=== PATIENT | female | born 1950 | race Caucasian/White ===

== ENCOUNTER 2017-04-02 12:28 | Emergency (ER) | payer BC ==
[2017-04-02 13:11] LABS: Bilirubin Negative (Negative); Blood, Urine Negative (Negative); Glucose, Urine (Dipstick) Negative (Negative); Ketone, Urine Negative (Negative); Nitrite Negative (Negative); Protein, Urine (Dipstick) Negative (Neg-Trace); Urobilinogen 0.2 mg/dL (0.2-1.0)
[2017-04-02 13:22] LABS: #Eosinphils 0.2 thou/uL (0.0-0.7); #Lymphocytes 3.6 thou/uL (1.20-3.40); #Monocytes 0.8 thou/uL (0.11-0.59); %Basophils 0.4 % (0.0-1.0); %Eosinophils 1.8 % (0.0-10.0); %Lymphocytes 37.4 % (21.0-51.0); %Monocytes 8.3 % (0.0-10.0); Hematocrit 42.9 % (36.0-47.0); Red Blood Cell (RBC) Count 4.49 mill/uL (4.20-5.40); White Blood Cell (WBC) Count 9.7 thou/uL (4.8-10.8)
--- NOTE | 2017-04-02 13:32 | CT ---
CT ABDOMEN AND PELVIS NONCONTRAST: HISTORY: Right flank pain. FINDINGS: Each renal collecting system and ureter are decompressed without stone evident. The urinary bladder is also decompressed. Phleboliths outside of the course of each ureter are apparent within the retro peritoneum. Lack of contrast limits evaluation for other abnormalities. There is calcification of the arterial s tructures. The gallbladder is surgically absent. A small, lobulated, nonspecific, low density lesio n is present within the right liver lobe, near the gallbladder fossa. Minimal amount of transverse c olon protrudes through an anterior abdominal wall defect, just above the level of the umbilicus. The re are degenerative changes of the lumbar spine. The liver is diffusely hypodense. IMPRESSION: 1. No CT evidence of urinary tract obstruction or calcification. 2. Hepatosteatosis, status post cholecystectomy. 3. Atherosclerosis. POS: [facility]
[2017-04-02 13:43] LABS: ALT (SGPT) 46 U/L (8-55); AST (SGOT) 48 U/L (5-34); Alkaline Phosphatase 115 U/L (40-150); Anion Gap 14 mmol/L (10-20); BUN (Urea Nitrogen) 11 mg/dL (9.8-20.1); Bilirubin, Total 0.4 mg/dL (0.2-1.2); Calc. Creatinine Clearance 0 mL/min (70-130); Calcium 10.6 mg/dL (7.8-10.44); Carbon Dioxide 26 mmol/L (23-31); Chloride 101 mmol/L (98-107); Estimated GFR-MDRD 80; Globulin 3.6 g/dL (2.4-3.5)
[2017-04-02] MEDS ORDERED: Ketorolac Tromethamine 30 MG/ML VIAL ONE (15:20)
[2017-04-02] MEDS ORDERED: Diazepam 5 MG TAB ONE (16:23)
== END 2017-04-02 16:36 | disposition home or self-care (01) ==
LOC: ERS 12:28
DX: R10.9 Unspecified abdominal pain (principal); I10 Essential (primary) hypertension; E03.9 Hypothyroidism, unspecified; F17.210 Nicotine dependence, cigarettes, uncomplicated; Z79.899 Other long term (current) drug therapy
CPT/HCPCS: 36415; 74176; 80053; 81003; 85025; 96361; 96374; J1885

== ENCOUNTER 2017-10-17 10:16 | Outpatient (CLI) | payer BC ==
--- NOTE | 2017-10-17 11:20 | RAD ---
CHEST TWO VIEWS: HISTORY: Cough and COPD. COMPARISON: 03/23/2016 FINDINGS: Two views of the chest show normal sized cardiomediastinal silhouette. There is no evidence of consol idation, mass, or pleural effusion. Degenerative changes are seen in the spine. Surgical clips are s een in the upper abdomen. IMPRESSION: No evidence of acute cardiopulmonary disease. POS: [facility]
== END 2017-10-17 10:17 | disposition home or self-care (01) ==
LOC: RAD-FRANK 10:16
PROVIDERS: ATTEND Nurse Practitioner Family
DX: J44.1 Chronic obstructive pulmonary disease with (acute) exacerbation (principal); F17.200 Nicotine dependence, unspecified, uncomplicated; J01.80 Other acute sinusitis
CPT/HCPCS: 71046

== ENCOUNTER 2018-06-23 08:50 | Outpatient (CLI) | payer BC ==
--- NOTE | 2018-06-23 11:41 | CT ---
CT OF THE THORAX WITH IV CONTRAST: INDICATION: History of acute exacerbation of COPD and bronchitis. CONTRAST: 70 cc of Isovue 370. COMPARISON: CTA of the thorax dated 11/22/2011 and a complete abdomen ultrasound dated 06/13/2016. FINDINGS: There are areas of subsegmental volume loss within the lingula and left lower lobe. There is mild sc attered centrilobular emphysema. No suspicious pulmonary nodule is demonstrated. No confluent airsp daniella opacity is present. There are a few shotty nonpathologically enlarged lymph nodes within the mediastinum in the pretrache al, prevascular, or AP window regions. The largest node is seen within the AP window measuring 8 mm. There are prominent vascular calcifications involving the thoracic aorta. There are surgical clips within the region of the gastroesophageal junction. There is a cirrhotic mo rphology of the liver. There is an enhancing lesion involving the right hepatic lobe measuring 1.8 c m. The gallbladder is surgically absent. The adrenal glands are normal-appearing. There is scattered degenerative and osteoarthritic change. No definite acute osseous abnormality is evident. IMPRESSION: 1. Areas of subsegmental volume loss in the lingula and left lower lobe can be related to peripheral airways disease such as bronchiolitis. There is mild centrilobular emphysema. No suspicious pulmon jonathan nodule is evident. 2. Cirrhosis with an arterial enhancing lesion right hepatic dome. This requires further evaluation as a hypervascular hepatic malignancy is not excluded. A CT of the abdomen utilizing a hemangioma p rotocol is recommended. Additional smaller hypodensity is seen within segment 6 of right hepatic lob e that requires further characterization. CODE T POS: [facility]
[2018-06-23] MEDS ORDERED: ISOVUE-370 76%-LOCM 1 ML ONE (16:27)
== END 2018-06-23 08:51 | disposition home or self-care (01) ==
LOC: BICCT 08:50
PROVIDERS: ATTEND Nurse Practitioner Family
DX: F17.200 Nicotine dependence, unspecified, uncomplicated (principal); J43.9 Emphysema, unspecified; K74.60 Unspecified cirrhosis of liver; R93.2 Abnormal findings on diagnostic imaging of liver and biliary tract
CPT/HCPCS: 71260; 82565; Q9966

== ENCOUNTER 2018-08-14 13:29 | Outpatient (CLI) | payer BC ==
[~2018-08-14 13:29] MED LIST: Gadobenate Dimeglumine 529 MG/1 ML (20ML VIAL) ONE
[2018-08-14 14:23] LABS: Estimated GFR-MDRD - POC Greater than 90
--- NOTE | 2018-08-14 15:29 | MRI ---
MRI OF THE ABDOMEN WITH AND WITHOUT IV CONTRAST: INDICATION: History of concern for cirrhosis and hepatic lesion. CONTRAST: 16 cc of MultiHance. COMPARISON: CT thorax dated 06/23/2018. FINDINGS: There is a nodular contour to the liver suspicious for early changes of cirrhosis. There is signal d ropout on the in and out of phase images of the liver consistent with infiltration. The spleen is up per limits of normal measuring 12.1 cm in length. The lesion seen within segment 8 of the right hepa tic lobe measuring 1.8 cm and is T1 hypointense, T2 hyperintense, and demonstrates peripheral nodular discontinuous enhancement on the postcontrast image consistent with a hemangioma. Additionally, the re is a T2 hyperintense, nonenhancing lesion within segment 6 of the right hepatic lobe measuring 1.8 cm consistent with cyst. The visualized common bile duct appears mildly patent. Main pancreatic du ct is within normal limits. The pancreas and adrenal glands are normal-appearing. There are small s ubcentimeter cysts within both kidneys. No free fluid or pathologically enlarged lymph nodes are shin dent. No suspicious arterially enhancing lesion is evident within the liver. No marrow signal abnor mality is noted. IMPRESSION: 1. The right hepatic dome lesion has enhancing characteristics consistent with hemangioma. 2. Segment 6 right hepatic lobe cyst. 3. Nodular contour to the liver suspicious for changes of early cirrhosis. There is mild signal peter pout involving the liver on the in and out of phase suspicious for mild fatty infiltration. 4. Small bilateral renal cysts. 5. Nonvisualization of the gallbladder suspicious for prior cholecystectomy. POS: [facility]
== END 2018-08-14 13:30 | disposition home or self-care (01) ==
LOC: BICMRI 13:29
PROVIDERS: ATTEND Internal Medicine Gastroenterology
DX: K74.60 Unspecified cirrhosis of liver (principal); R93.2 Abnormal findings on diagnostic imaging of liver and biliary tract; R85.89 Other abnormal findings in specimens from digestive organs and abdominal cavity; K76.89 Other specified diseases of liver; N28.1 Cyst of kidney, acquired; Z86.010 Personal history of colon polyps
CPT/HCPCS: 74183; 82565; A9577

== ENCOUNTER 2019-03-03 12:29 | Outpatient (CLI) | payer MEDICARE ==
--- NOTE | 2019-03-03 15:20 | MMO ---
Bilateral MAMMO Bilat Screen [facility]. CLINICAL HISTORY: Patient is 69 years old and is seen for screening. The patient has the following family history of breast cancer: sister. The patient has no personal history of cancer. VIEWS: The views performed were: bilateral craniocaudal with tomosynthesis and bilateral mediolateral oblique with tomosynthesis. This study has been interpreted with the assistance of computer-aided detection. MAMMOGRAM FINDINGS: There are scattered fibroglandular densities. There are no suspicious masses, suspicious calcifications, or new areas of architectural distortion. IMPRESSION: THERE IS NO MAMMOGRAPHIC EVIDENCE OF MALIGNANCY. A ROUTINE FOLLOW-UP MAMMOGRAM IN 1 YEAR IS RECOMMENDED. THE RESULTS OF THIS EXAM WERE SENT TO THE PATIENT. ACR BI-RADS Category 1 - Negative MAMMOGRAPHY NOTE: 1. A negative mammogram report should not delay a biopsy if a dominant of clinically suspicious mass is present. 2. Approximately 10% to 15% of breast cancers are not detected by mammography. 3. Adenosis and dense breasts may obscure an underlying neoplasm. Reported by: AYLIN GARCIA MD Electonically Signed: [id number]
== END 2019-03-03 12:30 | disposition home or self-care (01) ==
LOC: BICMAMMO 12:29
PROVIDERS: ATTEND Nurse Practitioner Family
DX: Z12.31 Encounter for screening mammogram for malignant neoplasm of breast (principal); Z80.3 Family history of malignant neoplasm of breast
CPT/HCPCS: 77063; 77067

== ENCOUNTER 2025-04-05 14:03 | Inpatient (IN) | payer MEDICARE ==
[~2025-04-05 14:03] MED LIST changes: -Gadobenate Dimeglumine 529 MG/1 ML (20ML VIAL) ONE; +Iopamidol-370 76% 500 ML MDV (1 ML CHARGE) ONE
[2025-04-05 16:51] LABS: #Basophils 0.06 10x3/uL (0.0-0.2); #Eosinophils 0.12 10x3/uL (0.0-0.7); #Monocytes 0.74 10x3/uL (0.11-0.59); #Neutrophils 3.74 10x3/uL (1.40-6.50); %Basophils 1.1 % (0.0-1.0); %Eosinophils 2.2 % (0.0-10.0); %Lymphocytes 14.3 % (21.0-51.0); %Monocytes 13.6 % (0.0-10.0); %Neutrophils 68.4 % (42.0-75.0); Hematocrit 38.7 % (36.0-47.0); Hemoglobin 13.4 g/dL (12.0-16.0); Mean Corpuscular Hemoglobin 29.8 pg (27.0-31.0); Mean Corpuscular Volume 86.2 fL (78.0-98.0); Platelet Count 182 10x3/uL (130-400); Red Blood Cell (RBC) Count 4.49 mill/uL (4.20-5.40); White Blood Cell (WBC) Count 5.46 10x3/uL (4.8-10.8)
[2025-04-05 17:09] LABS: ALT (SGPT) 41 U/L (Less than 34); AST (SGOT) 146 U/L (11-34); Albumin 2.4 g/dL (3.1-4.5); Alkaline Phosphatase 256 U/L (40-110); Anion Gap 13 mmol/L (10-20); BUN (Urea Nitrogen) 4 mg/dL (9.8-20.1); Bilirubin, Total 4.3 mg/dL (0.3-1.2); Calc. Creatinine Clearance 0 mL/min (70-130); Calcium 8.6 mg/dL (7.8-10.44); Carbon Dioxide 23 mmol/L (23-31); Chloride 100 mmol/L (98-107); Globulin 4.7 g/dL (2.4-3.5); Glucose 119 mg/dL (83-110); Potassium 3.2 mmol/L (3.5-5.1); Sodium 133 mmol/L (136-145)
[2025-04-05] MEDS ORDERED: Ondansetron PF 4 MG/2 ML Vial ONE (17:36)
[2025-04-05 18:02] LABS: INR-International Normal Ratio 1.4; Prothrombin Time 17.4 sec (12.0-14.7)
[2025-04-05 18:03] LABS: PTT 42.9 sec (22.9-36.1)
[2025-04-05 21:32] LABS: Bacteria/HPF None Seen HPF (None Seen); CAUTI Indications for Culture Dysuria,urgency,freq; Glucose, Urine (Dipstick) Normal (Negative); Leukocyte Negative Leu/uL (Negative); Protein, Urine (Dipstick) Negative (Neg-Trace); RBC/HPF None Seen HPF (0-3); Specific Gravity, Urine 1.022 (1.002-1.036); WBC/HPF 0-3 HPF (0-3)
[2025-04-05 21:39] LABS: Urine Culture Reflex No No
[2025-04-05 22:09] VITALS: BMI 29.5
[2025-04-05] MEDS ORDERED: Ondansetron PF 4 MG/2 ML Vial IVP PRN (23:46)
[2025-04-06 00:20] LABS: Hematocrit 34.4 % (36.0-47.0); Hemoglobin 11.5 g/dL (12.0-16.0)
[2025-04-06] MEDS: Melatonin 3 MG TAB PO PRN (00:48)
[2025-04-06] MEDS: cefTRIAXone\\ROCEPHIN 1 GM in Sodium Chloride 0.9% 100 ML IVPB SCH (00:48)
[2025-04-06] MEDS: Pantoprazole 40 MG VIAL IVP SCH ×2 (00:48→10:34)
[2025-04-06 05:00] LABS: #Basophils 0.04 10x3/uL (0.0-0.2); #Eosinophils 0.14 10x3/uL (0.0-0.7); #Monocytes 0.67 10x3/uL (0.11-0.59); #Neutrophils 1.88 10x3/uL (1.40-6.50); %Basophils 1.2 % (0.0-1.0); %Eosinophils 4.1 % (0.0-10.0); %Lymphocytes 20.6 % (21.0-51.0); %Monocytes 19.5 % (0.0-10.0); %Neutrophils 54.6 % (42.0-75.0); Hematocrit 32.6 % (36.0-47.0); Hemoglobin 11.1 g/dL (12.0-16.0); Mean Corpuscular Hemoglobin 29.5 pg (27.0-31.0); Mean Corpuscular Volume 86.7 fL (78.0-98.0); Platelet Count 129 10x3/uL (130-400); Red Blood Cell (RBC) Count 3.76 mill/uL (4.20-5.40); White Blood Cell (WBC) Count 3.44 10x3/uL (4.8-10.8)
[2025-04-06 05:15] LABS: ALT (SGPT) 34 U/L (Less than 34); AST (SGOT) 110 U/L (11-34); Albumin 2.1 g/dL (3.1-4.5); Alkaline Phosphatase 215 U/L (40-110); Anion Gap 12 mmol/L (10-20); BUN (Urea Nitrogen) 4 mg/dL (9.8-20.1); Bilirubin, Total 3.1 mg/dL (0.3-1.2); Calc. Creatinine Clearance 134 mL/min (70-130); Calcium 8.3 mg/dL (7.8-10.44); Carbon Dioxide 22 mmol/L (23-31); Chloride 105 mmol/L (98-107); Globulin 4.1 g/dL (2.4-3.5); Glucose 94 mg/dL (83-110); Magnesium 1.5 mg/dL (1.6-2.6); Potassium 3.7 mmol/L (3.5-5.1); Sodium 135 mmol/L (136-145)
[2025-04-06] MEDS: Levothyroxine 150 MCG TAB PO SCH (06:19)
[2025-04-06] MEDS: Magnesium 2 GM/50 ML(in water) 2 GM in Premix 1 BAG IVPB SCH (06:22)
[2025-04-06] MEDS ORDERED: Sodium Bicarbonate 2.5 MEQ/5 ML SDV ONE (09:37)
[2025-04-06] MEDS ORDERED: Lidocaine 1% PF 5 ML VIAL ONE (09:37)
[2025-04-06] MEDS: Losartan 25 MG TAB PO SCH (10:33)
[2025-04-06] MEDS: Furosemide 40 MG TAB PO SCH (10:34)
[2025-04-06 12:56] LABS: RBC Count-Automated (BF) 99 /cu.mm; WBC/Nucleated-Auto (BF) 180 /cu.mm
[2025-04-06 13:37] LABS: BF Segmented Neutrophils 12 %; Cell Count Non Hematic 70 %
[2025-04-06] MEDS ORDERED: Enoxaparin 30 MG (0.3 mL) SYRINGE SC SCH (21:00)
[2025-04-06] MEDS: Hydrocortisone 2.5%/Pramoxine 1% CRM 30 GM TUBE TOP SCH (21:06)
[2025-04-07 05:06] LABS: #Basophils 0.04 10x3/uL (0.0-0.2); #Eosinophils 0.10 10x3/uL (0.0-0.7); #Monocytes 0.59 10x3/uL (0.11-0.59); #Neutrophils 1.71 10x3/uL (1.40-6.50); %Basophils 1.3 % (0.0-1.0); %Eosinophils 3.2 % (0.0-10.0); %Lymphocytes 22.5 % (21.0-51.0); %Monocytes 18.7 % (0.0-10.0); %Neutrophils 54.0 % (42.0-75.0); Hematocrit 31.2 % (36.0-47.0); Hemoglobin 10.5 g/dL (12.0-16.0); Mean Corpuscular Hemoglobin 29.6 pg (27.0-31.0); Mean Corpuscular Volume 87.9 fL (78.0-98.0); Platelet Count 121 10x3/uL (130-400); Red Blood Cell (RBC) Count 3.55 mill/uL (4.20-5.40); White Blood Cell (WBC) Count 3.16 10x3/uL (4.8-10.8)
[2025-04-07 05:11] LABS: ALT (SGPT) 31 U/L (Less than 34); AST (SGOT) 105 U/L (11-34); Albumin 2.0 g/dL (3.1-4.5); Alkaline Phosphatase 206 U/L (40-110); Anion Gap 13 mmol/L (10-20); BUN (Urea Nitrogen) Less than 4 mg/dL (9.8-20.1); Bilirubin, Total 2.6 mg/dL (0.3-1.2); Calc. Creatinine Clearance 131 mL/min (70-130); Calcium 8.2 mg/dL (7.8-10.44); Carbon Dioxide 23 mmol/L (23-31); Chloride 104 mmol/L (98-107); Globulin 3.9 g/dL (2.4-3.5); Glucose 98 mg/dL (83-110); Magnesium 1.4 mg/dL (1.6-2.6); Potassium 2.9 mmol/L (3.5-5.1); Sodium 137 mmol/L (136-145)
[2025-04-07] MEDS ORDERED: Electrolyte Replacement Protocol 1 EACH FS SCH (08:00)
[2025-04-07] MEDS ORDERED: Magnesium Sulfate In Water 4 GM in Premix 1 BAG IVPB PRN (08:15)
[2025-04-07] MEDS ORDERED: PHOS-NAK 1 PKT PACK PO PRN (08:15)
[2025-04-07] MEDS ORDERED: Potassium Chloride 20 MEQ in Premix 1 BAG IVPB PRN (08:15)
[2025-04-07] MEDS: Furosemide 20 MG TAB PO SCH (09:42)
[2025-04-07 11:38] VITALS: BP 125/71; TEMP 97.4
[2025-04-07 13:15] LABS: Anion Gap 10 mmol/L (10-20); BUN (Urea Nitrogen) Less than 4 mg/dL (9.8-20.1); Calc. Creatinine Clearance 143 mL/min (70-130); Calcium 8.6 mg/dL (7.8-10.44); Carbon Dioxide 27 mmol/L (23-31); Chloride 101 mmol/L (98-107); Glucose 135 mg/dL (83-110); Potassium 3.4 mmol/L (3.5-5.1); Sodium 135 mmol/L (136-145)
[2025-04-09 12:23] LABS: ANA Symphony (Qualitative) Negative (Negative); ANA Symphony (Quantitative) 0.4 Ratio (< 0.7 Negative); dsDNA IgG Antibody 24.0 IU/mL (<10 Negative)
== END 2025-04-07 14:21 | disposition home or self-care (01) | DRG 433 ==
LOC: ERS 14:03 → OBS 20:15 → OBSVTOIN 04-06 08:29
PROVIDERS: ADMIT Internal Medicine; ATTEND Internal Medicine
PROC: 0W9G3ZZ Drainage of Peritoneal Cavity, Percutaneous Approach (ICD-10-PCS; principal; 2025-04-06)
PROC: 3E03329 Introduction of Other Anti-infective into Peripheral Vein, Percutaneous Approach (ICD-10-PCS; 2025-04-06)
DX: K74.60 Unspecified cirrhosis of liver (principal); K92.1 Melena; R18.8 Other ascites; E03.9 Hypothyroidism, unspecified; F17.210 Nicotine dependence, cigarettes, uncomplicated; I35.0 Nonrheumatic aortic (valve) stenosis; I27.20 Pulmonary hypertension, unspecified; Z90.49 Acquired absence of other specified parts of digestive tract; Z90.710 Acquired absence of both cervix and uterus; Z79.890 Hormone replacement therapy; Z79.899 Other long term (current) drug therapy
CPT/HCPCS: 36415; 49083; 74177; 76705; 80053; 81001; 82042; 83690; 83735; 83880; 84155; 84157; 84484; 85025; 85060; 85610; 85730; 86015; 86038; 86225; 86850; 86900; 86901; 87070; 87205; 88112; 88305; 89051; 93005; 93306; 93976; 96374; 96375; G0378; J0696; J2270; J2405; J2470; J3475; Q9967